=== PATIENT | female | born 1995 | race Caucasian/White ===

== ENCOUNTER 2025-09-02 17:24 | Emergency (ER) | payer OTHER ==
[2025-09-02 17:44] VITALS: BP 129/84; PULSE 88; RESP 18; TEMP 98.4; BMI 29.2
== END 2025-09-02 18:17 | disposition home or self-care (01) ==
LOC: FER 17:24
DX: M79.89 Other specified soft tissue disorders (principal); M79.645 Pain in left finger(s); R60.0 Localized edema
CPT/HCPCS: 99283-25